=== PATIENT | female | born 2000 | race Caucasian/White ===

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

== ENCOUNTER → 2018-08-10 16:03 | Emergency (ER) | payer OTHER ==
[~2018-08-10 16:03] MED LIST: Lidocaine 1%* 5 ML VIAL INJ ONE
--- NOTE | 2018-08-10 18:13 | ED ---
Laceration/Wound HPI - HPI Summary HPI Summary: 18-year-old female presents with left index finger laceration today. She cut it on a knife. the area is not actively bleeding. No numbness or tinlgin. Has full range of motion of her finger. Is right-handed. Works in the kitchen. - History of Current Complaint Stated Complaint: LT INDEX FINGER LAC Time Seen by Provider: 08/10/18 17:40 Hx Last Menstrual Period: 07/16/17 Pain Intensity: 10 - Allergy/Home Medications Allergies/Adverse Reactions: Allergies Allergy/AdvReac Type Severity Reaction Status Date / Time sunflower seeds Allergy Swelling Uncoded 07/31/17 08:27 Of Face,Lips,& Throat PMH/Surg Hx/FS Hx/Imm Hx Endocrine/Hematology History: Denies: Hx Diabetes, Hx Thyroid Disease Cardiovascular History: Reports: Hx Hypertension Respiratory History: Reports: Hx Asthma Denies: Hx Chronic Obstructive Pulmonary Disease (COPD) GI History: Denies: Hx Ulcer - Surgical History Surgery Procedure, Year, and Place: tonsillectomy. ear tubes Infectious Disease History: No Infectious Disease History: Denies: Hx Clostridium Difficile, Hx Hepatitis, Hx Human Immunodeficiency Virus (HIV), Hx of Known/Suspected MRSA, Hx Shingles, Hx Tuberculosis, Hx Known/ Suspected VRE, Hx Known/Suspected VRSA, History Other Infectious Disease, Traveled Outside the [place] in Last 30 Days - Family History Known Family History: Positive: Cardiac Disease, Hypertension - Social History Alcohol Use: None Hx Substance Use: No Substance Use Type: Reports: None Hx Tobacco Use: No Smoking Status (MU): Never Smoked Tobacco Have You Smoked in the Last Year: No Review of Systems Negative: Fever Negative: Chest Pain Negative: Shortness Of Breath Positive: Other - left index finger All Other Systems Reviewed And Are Negative: Yes Physical Exam Triage Information Reviewed: Yes Vital Signs On Initial Exam: Initial Vitals Temp Pulse Resp BP Pulse Ox 97.2 F 95 18 162/106 95 08/10/18 16:08 08/10/18 16:08 08/10/18 16:08 08/10/18 16:08 08/10/18 16:08 Vital Signs Reviewed: Yes Appearance: Positive: Well-Appearing Skin: Positive: Warm, Dry, Other - 3 1/2cm by 1/2cm flap like laceration of distal phalanx of left index finger Head/Face: Positive: Normal Head/Face Inspection Eyes: Positive: Normal, EOMI, RAMON, Conjunctiva Clear Respiratory/Lung Sounds: Positive: Clear to Auscultation, Breath Sounds Present Cardiovascular: Positive: Normal, RRR Musculoskeletal: Positive: Strength/ROM Intact - left index finger, Other - capillary refill<2 secs Neurological: Positive: Normal Psychiatric: Positive: Normal Procedures - Laceration/Wound Repair 1 Location: Other - left index finger Description: Irregular Anesthesia: Digital, 1.0% Length, Depth and Shape: 3 1/2cm by 1/2cm Irrigated w/ Saline (ccs): 200 Laceration/Wound Explored: no foreign body removed Closure: Single Layer Suture Type: Prolene Number of Sutures: 5 Diagnostics - Vital Signs Vital Signs Temp Pulse Resp BP Pulse Ox 08/10/18 16:08 97.2 F 95 18 162/106 95 - Laboratory Lab Statement: Any lab studies that have been ordered have been reviewed, and results considered in the medical decision making process. Laceration Repair Course/Dx - Course Course Of Treatment: 18-year-old female presents with left index finger laceration today. She cut it on a knife. the area is not actively bleeding. No numbness or tinlgin. Has full range of motion of her finger. Is right- handed. Works in the kitchen. On exam has 3 and half centimeter by 1/2cm flap- like laceration of distal phalanx of left index finger. Neurovascular intact. Cleaned area and placed 5 sutures. Told to keep the area clean and dry. Patient understands agrees plan. - Differential Dx Differental Diagnoses: Abrasion, Avulsion, Laceration - Clinical Impression Provider Diagnoses: Laceration of left index finger Discharge - Sign-Out/Discharge Documenting (check all that apply): Patient Departure Patient Received Moderate/Deep Sedation with Procedure: No - Discharge Plan Condition: Good Disposition: HOME Patient Education Materials: Care For Your Stitches (ED) Referrals: Theodore Ramsey DRY CAN TENDER [Primary Care Provider] - Additional Instructions: Take Tylenol or ibuprofen for pain every 6 hours as needed Keep area clean and dry for 24 hours Return to ED or primary in 8-10 days to have sutures removed Return to ED if develop signs of infection such as fever, spreading redness, or pus. - Billing Disposition and Condition Condition: GOOD Disposition: Home
[2018-08-10 18:49] VITALS: BP 134/78
== END | disposition home or self-care (01) ==
LOC: ED 16:03
DX: S61.211A Laceration without foreign body of left index finger without damage to nail, initial encounter (principal); W26.0XXA Contact with knife, initial encounter; Y92.9 Unspecified place or not applicable
CPT/HCPCS: 12002; 99282

== ENCOUNTER 2019-09-12 12:53 | Emergency (ER) | payer OTHER ==
--- NOTE | 2019-09-12 13:20 | UC ---
Respiratory Complaint HPI - HPI Summary HPI Summary: 19 yo female presents with URI symptoms. She tells me that she has a history of asthma. For the last 4 days has had cough, wheezing, and feeling short of breath. She went to an Urgent Care 4 days ago when symptoms began and was told it was viral and discharged her. She has been using her albuterol inhaler and nebulizer with good intermittent relief. She denies fever, chills, sore throat, chest pain, abdominal pain, n/v. No known exposure to COVID. No travel. - History of Current Complaint Chief Complaint: UCRespiratory Stated Complaint: COUGH SHORT OF BREATH STUFFY NOSE Time Seen by Provider: 09/12/19 12:56 Hx Obtained From: Patient Hx Last Menstrual Period: August 25, 2019 Onset/Duration: Sudden Onset Severity Initially: Mild Severity Currently: Moderate Pain Intensity: 6 Pain Scale Used: 0-10 Numeric - Allergies/Home Medications Allergies/Adverse Reactions: Allergies Allergy/AdvReac Type Severity Reaction Status Date / Time sunflower seeds Allergy Swelling Uncoded 09/12/19 13:14 Of Face,Lips,& Throat Home Medications: Home Medications Azithromycin TAB* [Zithromax TAB (Z-JENNIFER) 250 mg #6 tabs] 2 tab PO .TODAY, THEN 1 DAILY #1 jennifer 09/12/19 [Rx] predniSONE [Prednisone 20 MG TAB] 40 mg PO DAILY 5 Days #10 tablet 09/12/19 [Rx] PMH/Surg Hx/FS Hx/Imm Hx Respiratory History: Asthma - Surgical History Surgical History: Yes Surgery Procedure, Year, and Place: tonsillectomy and adenoids. ear tubes - Family History Known Family History: Positive: Cardiac Disease, Hypertension - Social History Lives: With Family Alcohol Use: Rare Substance Use Type: None Smoking Status (MU): Never Smoked Tobacco Have You Smoked in the Last Year: No - Immunization History Most Recent Influenza Vaccination: 2013 Vaccination Up to Date: Yes Review of Systems All Other Systems Reviewed And Are Negative: No Constitutional: Positive: Negative Skin: Positive: Negative Eyes: Positive: Negative ENT: Positive: Negative Respiratory: Positive: Shortness Of Breath, Cough Cardiovascular: Positive: Negative Gastrointestinal: Positive: Negative Neurovascular: Positive: Negative Neurological/Mental Status: Positive: Negative Psychological: Positive: Negative Physical Exam - Summary Physical Exam Summary: GENERAL: NAD. WDWN. No pain distress. SKIN: No rashes, sores, lesions, or open wounds. HEENT: Head: AT/NC Eyes: Conjunctiva clear without inflammation or discharge. Ears: Hearing grossly normal. TMs intact, no bulging, erythema, or edema. Nose: Nasal mucosa pink and moist. NTTP maxillary and frontal sinus. Throat: Posterior oropharynx without exudates, erythema, or tonsillar enlargement. Uvula midline. NECK: Supple. Nontender. No lymphadenopathy. CHEST: Mild wheezing throughout. No r/r. No accessory muscle use. Breathing comfortably and in no distress. CV: RRR. Pulses intact. Cap refill <2seconds NEURO: Alert. PSYCH: Age appropriate behavior. Triage Information Reviewed: Yes Vital Signs: Vital Signs: Temp Pulse Resp BP Pulse Ox 97.4 F 85 18 130/84 100 09/12/19 13:14 09/12/19 13:14 09/12/19 13:14 09/12/19 13:14 09/12/19 13:14 Vital Signs Reviewed: Yes Respiratory Course/Dx - Course Course Of Treatment: Suspect asthma exacerbation/bronchitis. I recommended COVID testing today, but pt declined. Recommend home isolation. Will treat for bronchitis at this time. - Differential Dx/Diagnosis Provider Diagnosis: Bronchitis Discharge ED - Sign-Out/Discharge Documenting (check all that apply): Patient Departure All imaging exams completed and their final reports reviewed: No Studies - Discharge Plan Condition: Stable Disposition: HOME Prescriptions: Azithromycin TAB* [Zithromax TAB (Z-JENNIFER) 250 mg #6 tabs] 2 tab PO .TODAY, THEN 1 DAILY #1 jennifer predniSONE [Prednisone 20 MG TAB] 40 mg PO DAILY 5 Days #10 tablet Patient Education Materials: Acute Bronchitis (ED) Referrals: Theodore Ramsey, CANDY CATCHER [Primary Care Provider] - Additional Instructions: If you develop a fever, shortness of breath, chest pain, new or worsening symptoms - please call your PCP or go to the ED immediately. - Billing Disposition and Condition Condition: STABLE Disposition: Home
[2019-09-12 13:43] VITALS: BP 130/84
== END 2019-09-12 13:59 | disposition home or self-care (01) ==
LOC: UCEAST 12:53
DX: J45.909 Unspecified asthma, uncomplicated (principal); Z79.51 Long term (current) use of inhaled steroids; Z91.018 Allergy to other foods
CPT/HCPCS: 99212; G0463